=== PATIENT | female | born 1945 | race Caucasian/White ===

== ENCOUNTER 2018-04-15 09:29 | Day surgery (SDC) | payer OTHER ==
[2018-04-15] MEDS ORDERED: EPINEPHrine 1 MG INJ (09:31)
[2018-04-15] MEDS ORDERED: TOBRAMYCIN/DEXAMETH 3.5 GM OPH OINT (09:31)
[2018-04-15] MEDS ORDERED: DICLOFENAC 0.1% 2.5 ML OPH OPER (10:30)
[2018-04-15] MEDS: NEOMYC/POLYMYX/GRAM 10 ML OPH LEFT EYE ×2 (11:09→11:20)
[2018-04-15] MEDS: LIDOCAINE 3.5% GEL TUBE OPER (11:19)
[2018-04-15] MEDS: TROPICAMIDE 1% 3 ML OPH OPER (11:20)
[2018-04-15] MEDS: PHENYLephrine 10% 5 ML OPH OPER (11:20)
[2018-04-15] MEDS: SODIUM HYALURONATE 14 MG/ML SYG IO (11:30)
[2018-04-15] MEDS: LIDOCAINE 1%/EPI (1:100,000) (MDV) 20 ML INJ (11:30)
[2018-04-15] MEDS ORDERED: FENTAnyl 50 MCG/ML VIAL (12:00)
[2018-04-15] MEDS ORDERED: ONDANSETRON 4 MG INJ IV (12:00)
[2018-04-15] MEDS ORDERED: MEPERIDINE 25 MG INJ IV (12:00)
[2018-04-15] MEDS ORDERED: HYDROmorphONE 1 MG/5 ML IV SYRINGE IV ×2 (12:00)
[2018-04-15] MEDS ORDERED: MIDAZOLAM 1 MG/ML 2 ML INJ (12:00)
[2018-04-15] MEDS ORDERED: DIPHENHYDRAMINE 50 MG INJ IV (12:00)
[2018-04-15] MEDS ORDERED: FENTAnyl 50 MCG/ML VIAL IV (12:00)
[2018-04-15] MEDS ORDERED: LIDOCAINE 1%/EPI 30 ML INJ ZFS (12:30)
[2018-04-15] MEDS: TOBRAMYCIN/DEXAMETH 3.5 GM OPH OINT OPER (12:30)
[2018-04-15] MEDS ORDERED: LIDOCAINE 2% (SDV) 5 ML INJ (12:41)
[2018-04-15] MEDS ORDERED: PROPOFOL 20 ML (12:41)
[2018-04-15] MEDS ORDERED: hydrALAzine 20 MG INJ IV (13:00)
[2018-04-15] MEDS ORDERED: LABETALOL HCL 20MG INJ (13:12)
[2018-04-15] MEDS: LABETALOL HCL 20MG INJ IV (13:20)
== END 2018-04-15 14:35 | disposition home or self-care (01) ==
LOC: SDS 09:29
DX: H25.12 Age-related nuclear cataract, left eye (principal); I10 Essential (primary) hypertension; E78.5 Hyperlipidemia, unspecified
CPT/HCPCS: 66984; 93005

== ENCOUNTER 2018-04-27 05:49 | Day surgery (SDC) | payer OTHER ==
[2018-04-27] MEDS ORDERED: MOXIFLOXACIN 0.5% 3 ML OPH OPER (06:00)
[2018-04-27] MEDS: PHENYLephrine 10% 5 ML OPH OPER (06:59)
[2018-04-27] MEDS: DICLOFENAC 0.1% 2.5 ML OPH OPER (06:59)
[2018-04-27] MEDS: LIDOCAINE 3.5% GEL TUBE OPER (06:59)
[2018-04-27] MEDS: TROPICAMIDE 1% 3 ML OPH OPER (06:59)
[2018-04-27] MEDS: LIDOCAINE 1% (MPF) 10 ML INJ (07:08)
[2018-04-27] MEDS: CARBACHOL 0.01% 1.5 ML OPH INJ (07:08)
[2018-04-27] MEDS: EPINEPHrine 1 MG INJ (07:09)
[2018-04-27] MEDS ORDERED: TETRACAINE 0.5% 4 ML OPH (07:09)
[2018-04-27] MEDS ORDERED: TOBRAMYCIN 0.3% 3.5 GM OPH OINT (07:09)
[2018-04-27] MEDS ORDERED: ONDANSETRON 4 MG INJ IV (07:30)
[2018-04-27] MEDS ORDERED: METOCLOPRAMIDE 10 MG INJ IV (07:30)
[2018-04-27] MEDS ORDERED: OXYCODONE/ACETAMINOPHEN (5/325) TAB PO ×2 (07:30)
[2018-04-27] MEDS ORDERED: EPHEDrine SULFATE 50 MG/5 ML SYG IV (07:30)
[2018-04-27] MEDS ORDERED: hydrALAzine 20 MG INJ IV (07:30)
[2018-04-27] MEDS ORDERED: DIPHENHYDRAMINE 50 MG INJ IV (07:30)
[2018-04-27] MEDS ORDERED: LABETALOL HCL 20MG INJ IV (07:30)
[2018-04-27] MEDS ORDERED: FENTAnyl 50 MCG/ML VIAL IV ×2 (07:30)
[2018-04-27] MEDS ORDERED: MIDAZOLAM 1 MG/ML 2 ML INJ IV (07:30)
[2018-04-27] MEDS ORDERED: MEPERIDINE 25 MG INJ IV (07:30)
[2018-04-27] MEDS ORDERED: MIDAZOLAM 1 MG/ML 2 ML INJ ×3 (07:45→08:30)
[2018-04-27] MEDS ORDERED: FENTAnyl 50 MCG/ML VIAL (07:57)
[2018-04-27] MEDS ORDERED: EPINEPHrine 1 MG INJ (08:05)
[2018-04-27] MEDS ORDERED: DEXAMETHASONE 4 MG/ML 1 ML INJ (08:35)
[2018-04-27] MEDS ORDERED: GENTAMICIN 80 MG INJ (08:35)
[2018-04-27] MEDS ORDERED: ACETAZOLAMIDE 250 MG TAB PO (09:00)
[2018-04-27] MEDS: FENTAnyl 50 MCG/ML VIAL IV (09:15)
[2018-04-27] MEDS: ACETAZOLAMIDE 250 MG TAB PO (09:33)
== END 2018-04-27 11:09 | disposition home or self-care (01) ==
LOC: SDS 05:49
DX: H26.9 Unspecified cataract (principal); H21.81 Floppy iris syndrome; E03.9 Hypothyroidism, unspecified
CPT/HCPCS: 66984; 93005